=== PATIENT | male | born 1995 | race Caucasian/White ===

== ENCOUNTER 2016-07-06 12:52 | Emergency (ER) | payer OTHER ==
[~2016-07-06] VITALS: Ht 172.7 cm; Wt 89.0 kg
[~2016-07-06 12:52] MED LIST: ALBU18HF INHALATION
[2016-07-06 12:58] VITALS: Ht 172.7 cm; Wt 89.0 kg
[2016-07-06] MEDS ORDERED: D-ME473S18 PO (14:13)
[2016-07-06] MEDS ORDERED: BENZ100C70 PO (14:13)
--- NOTE | 2016-07-06 15:51 | ERD ---
DATE OF SERVICE: 07/06/2016 HISTORY OF PRESENT ILLNESS: The patient is a 21-year-old male coming in complaining of a cough. Th e patient states he has had a cough for the last 3 weeks. He has no history of pneumonia or asthma. He has had no fevers. He has been using DayQuil with no alleviation. He states he has no shortne ss of breath, but states that his cough is productive with white sputum. He has no hemoptysis. No leg swelling. No pleuritic chest pain. PAST MEDICAL HISTORY: Denies medical problems. ALLERGIES TO MEDICATIONS: DENIES. PAST SURGICAL HISTORY: Denies. SOCIAL HISTORY: Denies. REVIEW OF SYSTEMS: A 12-point review of systems was done. Refer to HPI for positives, all other sy stems negative. PHYSICAL EXAMINATION VITAL SIGNS: Temperature is 97.9, pulse 77, blood pressure 136/81, respiratory rate 20, O2 saturati on 98% on room air. Pain intensity is 0/10. GENERAL: The patient is well-appearing, well-nourished, in no acute distress. HEENT: Atraumatic. Conjunctivae are pink. Pupils equal, round, and reactive to light. There is no s cleral icterus. Tympanic membranes clear bilaterally. Oropharynx clear. No nystagmus or photophobia . CHEST: Clear to auscultation bilaterally. There are no rales, wheezes or rhonchi. HEART: Regular rate and rhythm. No murmurs, clicks, rubs or gallops. No S3 or S4. ABDOMEN: Soft, nontender and nondistended. Good bowel sounds. No rebound or guarding. No gross feli tonitis. No gross organomegaly or masses. No Govea sign or McBurney point tenderness. DIAGNOSIS: Cough, likely viral. MEDICAL DECISION MAKING: I have low suspicion for pneumonia. Low suspicion for respiratory distres s or hypoxia. Low suspicion for sepsis. The patient's breath sounds are within normal limits. Oxy gen saturation is 98% on room air and patient is afebrile. DISCHARGE: The patient is discharged stable. The patient is given prescription for Tessalon and pr omethazine DM and told to follow up with primary care within 1 to 2 days for reevaluation. The agustín ent was told if symptoms progress or worsen, to return to the ER. All other questions answered at t he time of discharge. Discharge summary given at the time of departure. The patient understood and complied with plan. Dictated By: BAHMAN GIL for STANLEY ELIZABETH/DYLAN Conf#: [id number] DID#: [id number]
== END 2016-07-06 14:55 | disposition home or self-care (01) ==
LOC: FTE 12:52
DX: R05 Cough (principal)
CPT/HCPCS: 99284

== ENCOUNTER 2017-06-23 09:12 | Emergency (ER) | END 2017-06-23 10:02 | disposition home or self-care (01) ==

== ENCOUNTER 2017-07-08 09:07 | Emergency (ER) | END 2017-07-08 11:02 | disposition home or self-care (01) ==